=== PATIENT | female | born 1995 | race Caucasian/White ===

== ENCOUNTER 2022-09-13 03:51 | Emergency (ER) | payer SELFPAY ==
[2022-09-13] MEDS ORDERED: Sulfamethoxazole/Trimethoprim 800-160 MG Tab PO ONE (05:29)
== END 2022-09-13 05:40 | disposition home or self-care (01) ==
LOC: JD.ED 03:51
DX: N39.0 Urinary tract infection, site not specified (principal)
CPT/HCPCS: 81001; 99283; A9270